=== PATIENT | female | born 1950 | race Caucasian/White ===

== ENCOUNTER 2016-07-04 08:01 | Day surgery (SDC) | payer OTHER ==
[2016-06-28 16:47] VITALS: BMI 31.1
[2016-07-04] MEDS ORDERED: MIDAZOLAM HCL 2 MG/2 ML SINGLE DOSE VIAL ONE (10:24)
[2016-07-04] MEDS ORDERED: ROPIVACAINE HCL 0.5% 30ML VIAL ONE (10:24)
[2016-07-04] MEDS ORDERED: DEXAMETHASONE SOD PHOSPHATE/PF 10 MG/ML SDV ONE (10:24)
[2016-07-04] MEDS ORDERED: KETOROLAC TROMETHAMINE 30 MG/1 ML VIAL IVPUSH ONE (13:30)
[2016-07-04] MEDS ORDERED: KETOROLAC TROMETHAMINE 30 MG/1 ML VIAL ONE (13:31)
[2016-07-04] MEDS ORDERED: KETOROLAC TROMETHAMINE 30 MG/1 ML VIAL IM ONE (13:33)
[2016-07-04] MEDS ORDERED: oxyCODONE HCL 5 MG TABLET PO PRN (14:26)
[2016-07-04] MEDS ORDERED: ONDANSETRON 4 MG/2 ML VIAL IVPUSH PRN (14:26)
[2016-07-04] MEDS ORDERED: PROMETHAZINE HCL 25 MG/1 ML VIAL IVPUSH PRN (14:26)
[2016-07-04] MEDS ORDERED: LACTATED RINGERS SOLUTION 1,000 ML IV SCH (14:30)
[2016-07-04 15:17] VITALS: TEMP 97.8
[2016-07-04 16:53] VITALS: BP 132/78; PULSE 74
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
--- NOTE | 2016-07-06 11:23 | PATH ---
Surgical Pathology Report Patient Name: BASIL BALDERAS [facility]. Rec. #: [id number] /Age/Gender: 1950 (Age: 65) / F Account: [id number] Location: [facility] AMBULATORY Taken: 07/04/2016 Received: 07/04/2016 Reported: 07/06/2016 Physicians: Avril Denny M.D. Specimen(s) Received LEFT SHOULDER SHAVINGS Clinical History Complete rotator cuff tear Final Diagnosis LEFT SHOULDER, ARTHROSCOPIC SHAVING: PORTIONS OF SYNOVIUM WITH FOCAL CHRONIC INFLAMMATION, CARTILAGE, SKELETAL MUSCLE AND BONE CONSISTENT WITH ARTHROSCOPIC SHAVINGS. Electronically Signed Parminder Martinez M.D. Gross Description Received in formalin, labeled "left shoulder shavings," is a 3 x 3 x 0.5 cm. aggregate of peters-yellow soft tissue fragments. A personal service representative portion is submitted in one cassette. [facility]/07/05/2016 [facility]/07/05/2016
== END 2016-07-04 16:00 | disposition home or self-care (01) ==
LOC: FASU 08:01
PROVIDERS: ATTEND Orthopaedic Surgery
PROC: 0RBK4ZZ Excision of Left Shoulder Joint, Percutaneous Endoscopic Approach (ICD-10-PCS; 2016-07-04)
PROC: 0LQ20ZZ Repair Left Shoulder Tendon, Open Approach (ICD-10-PCS; principal; 2016-07-04 11:59)
DX: M75.122 Complete rotator cuff tear or rupture of left shoulder, not specified as traumatic (principal); M75.52 Bursitis of left shoulder
CPT/HCPCS: 88304-TC; 94760